=== PATIENT | female | born 1970 | race Caucasian/White ===

== ENCOUNTER 2018-12-04 12:45 | Day surgery (SDC) | payer OTHER ==
[2018-11-28 12:10] VITALS: BMI 35.8
--- NOTE | 2018-12-04 07:18 | HP ---
History & Physical Update - History History: No Change - Physical Physical: No Change - Assessment Assessment: No Change - Plan Plan: No Change (Initial H&P completed on 11/12/[address] Meg Paul. No new complaints or medications. Here today for elective ACDF C5-C7.)
[2018-12-04] MEDS: oxyCODONE HCL 10 MG SUSTAINED ACTING TABLET PO STA ×2 (09:15→15:44)
[~2018-12-04 12:45] MED LIST: BUPRENORPHINE TD SCH; CEFAZOLIN 2 GM in DEXTROSE 5%-WATER - 100 ML IVPB ONE; DEXAMETHASONE SOD PHOSPHATE 4 MG/1 ML VIAL ONE; GELATIN, ABSORBABLE 100 EACH SPONGE TP ONE; GUM MASTIC/STORAX/MSAL/ALCOHOL 1 DRP DROPSBTL MC ONE; LACTATED RINGERS SOLUTION 1,000 ML IV SCH; LIDOCAINE 1%/EPI 1:100000 (20 ML MULTI DOSE VIAL) ONE; LIDOCAINE HCL/PF 2% SDV 5ML VIAL ONE; MIDAZOLAM HCL 2 MG/2 ML SINGLE DOSE VIAL ONE; ONDANSETRON 4 MG/2 ML VIAL IVPUSH PRN; ONDANSETRON 4 MG/2 ML VIAL ONE; PROPOFOL 20 ML ONE; ROCURONIUM BROMIDE 50 MG/5 ML VIAL ONE; ROPIVACAINE HCL 0.5% 30ML VIAL ONE; SUCCINYLCHOLINE CHLORIDE 200 MG/10 ML VIAL ONE; THROMBIN (RECOMBINANT) 5,000 UNIT VIAL TP ONE; ceFAZolin SODIUM 1 GM VIAL ONE; fentaNYL CITRATE 250 MCG/5 ML VIAL ONE; oxyCODONE HCL 10 MG SUSTAINED ACTING TABLET ONE; oxyCODONE HCL 10 MG SUSTAINED ACTING TABLET PO STA; oxyCODONE HCL 5 MG TABLET PO PRN
[2018-12-04] MEDS ORDERED: ONDANSETRON 4 MG/2 ML VIAL IVPUSH ONE ×2 (12:52→12:55)
--- NOTE | 2018-12-04 12:55 | OP ---
DATE OF OPERATION: 12/03/2018 PREOPERATIVE DIAGNOSIS: Cervical stenosis, C5-6, C6-7. POSTOPERATIVE DIAGNOSIS: Cervical stenosis, C5-6, C6-7. PROCEDURE PERFORMED: 1. Anterior cervical diskectomy and fusion, C5-6. 2. Anterior cervical diskectomy and fusion, C6-7. 3. Placement of instrumentation, C5-C7. SURGEON: Michael Plata MD ECHOCARDIOGRAPHY TECHNOLOGIST: GOLDEN Sheppard ESTIMATED BLOOD LOSS: 50 mL. INTRAVENOUS FLUIDS: By Anesthesia. ANESTHESIA: General and ADRIEN block. COMPLICATIONS: There were none. DISPOSITION: Patient brought to the PACU in stable condition. CLINICAL INDICATION: The patient is a 48-year-old female who has been suffering from pain from her neck down her arm. X-rays and MRI were completed which noted that she had herniated disk at C5-6 and C6-7. She had gone through an exhaustive course of treatment for this which included medications, physical therapy, as well as injections. Unfortunately, her pain continued to persist despite all of this. At this point, risks, benefits, and alternatives were discussed, and the patient consented to surgery. OPERATIVE NOTE: Patient was brought to the operating room by Anesthesia. After appropriate patient identification was performed, general anesthesia and ADRIEN block was also given. Her arms were tucked in at the side. A shoulder roll was placed underneath her shoulder to extend her neck to the point that she could tolerate in the preoperative holding area. Neuromonitoring leads were attached. Needle was taped onto her neck to manpreet off the C5-6 level. X-rays taken to confirm this was correct. Needle was removed, and 10 mL of lidocaine with epinephrine was injected into her back at this time. Her back was prepped and draped in a sterile manner. At this point, timeout was completed. A 2-inch incision was made on the left side of her neck. Dissection was carried down to the platysma. Deep platysma was cut in line with the skin incision. Next, an interval between the sternocleidomastoid and strap muscles was developed. Next, interval between the carotid sheath and trachea and esophagus was developed. A needle was placed into the C5-6 disk. X-ray was taken to confirm this was correct. The needle was removed. The longus coli muscles were elevated off. [place] pins were placed into the body of C5 and C7. Disk was incised. Distraction was applied. At this point, the microscope was brought in. Using a series of pituitaries, Kerrisons, and curettes, diskectomy were completed at C5-6 and C6-7. Cages were trialed and placed in. The endplates were decorticated. Cages filled with bone graft were placed in. Distraction as then let go. A screw was placed in the body of C5. A screw was placed in the body of C6. A screw was placed in the body of C7. AP and lateral x-rays confirm the instrumentation to be in good position. Final tightening was performed. Deep platysma was closed with 2-0 Vicryl. The skin was closed with 3-0 Monocryl suture. Dermabond was applied. Steri-Strips were applied. Sterile dressing was applied. Patient was placed supine on the OR bed, extubated in the OR, and brought to the PACU in stable condition. Bruna [id number]
[2018-12-04] MEDS ORDERED: oxyCODONE HCL 10 MG SUSTAINED ACTING TABLET ONE (14:02)
[2018-12-04] MEDS ORDERED: oxyCODONE HCL 10 MG SUSTAINED ACTING TABLET PO ONE (14:10)
[2018-12-04] MEDS: CEFAZOLIN 1 GM/D5W 1 GRAM/50 ML BAG IVPB SCH (17:05)
[2018-12-04] MEDS: oxyCODONE HCL 5 MG TABLET PO PRN ×2 (17:05→20:56)
[2018-12-05] MEDS: CEFAZOLIN 1 GM/D5W 1 GRAM/50 ML BAG IVPB SCH (01:18)
[2018-12-05] MEDS: oxyCODONE HCL 5 MG TABLET PO PRN ×2 (01:22→05:58)
[2018-12-05 06:09] VITALS: BP 106/57; PULSE 89; TEMP 98.2
--- NOTE | 2018-12-05 08:27 | PN ---
Progress Note, Physician Chief Complaint: s/p ACDF post op day one History of Present Illness: under general anesthesia, superficial cervical plexus block for post op pain control - Current Medication List Current Medications: Active Medications Lactated Ringer's (Lactated Ringers Solution) 1,000 mls @ 125 mls/hr IV ASDIR CASSIE Last Admin: 12/04/18 15:45 Dose: Not Given Non-Formulary Medication (Buprenorphine [Butrans 15 Mcg/Hr]) 1 each TD WEEKLY [facility] Ondansetron HCl (Zofran Injection) 4 mg IVPUSH Q6H PRN PRN Reason: NAUSEA AND/OR VOMITING Oxycodone HCl (Roxicodone -) 5 mg PO Q4H PRN PRN Reason: PAIN LEVEL 1-5 Oxycodone HCl (Roxicodone -) 10 mg PO Q4H PRN PRN Reason: PAIN LEVEL 6-10 Last Admin: 12/05/18 05:58 Dose: 10 mg - Objective Vital Signs: Vital Signs Temperature 98.2 F 12/05/18 06:00 Pulse Rate 89 12/05/18 06:00 Respiratory Rate 18 12/05/18 06:00 Blood Pressure 106/57 L 12/05/18 06:00 O2 Sat by Pulse Oximetry (%) 94 L 12/05/18 06:00 Constitutional: Yes: Well Nourished Cardiovascular: Yes: WNL Respiratory: Yes: WNL Gastrointestinal: Yes: WNL Assessment/Plan patient complaining of pain when swallowing and difficutly breathing when walking. No acute distress, Tolerating PO as she was eating breakfast when interviewed this AM. Advised patient to inform medical team about chest pain and difficulty breathing when walking. She said they are aware. No adverse effect of anesthetic. Possible difficulty breathing as a result of unilateral phrenic nerve block which should resolve within 24 hours of the block. No other intervention at this time.
--- NOTE | 2018-12-05 10:40 | DS ---
Physical Exam: SUBJECTIVE: Patient seen and examined this am. She has complaints of left shoulder/arm pain. No difficulty swallowing does have pain in her throat/neck. OBJECTIVE: Vital Signs Temperature 98.2 F 12/05/18 06:00 Pulse Rate 89 12/05/18 06:00 Respiratory Rate 18 12/05/18 08:56 Blood Pressure 106/57 L 12/05/18 06:00 O2 Sat by Pulse Oximetry (%) 94 L 12/05/18 08:56 PHYSICAL EXAM GENERAL: The patient is awake, alert, and fully oriented, in no acute distress. NECK: Trachea midline, supple in c/d/i no masses. Mild swelling medially. No stridor. Soft cervical collar in place. LUNGS: Breath sounds equal, clear to auscultation bilaterally, no wheezes, no crackles, no accessory muscle use. HEART: Regular rate and rhythm. ABDOMEN: Soft, nontender, nondistended. EXTREMITIES: 2+ pulses, warm, well-perfused, no edema or calf tenderness. 5/5 dorsi/plantar flexion b/l. Slight decreased electric blanket packer strength and 4/5 with flexion/ extension to the left arm. NEUROLOGICAL: Normal speech, gait steady. PSYCH: Normal mood, normal affect. HOSPITAL COURSE: The patient was admitted to the Med-Surg Unit after an elective repair of their cervical stenosis. Now, s/p C5-6 and C6-7 anterior cervical disectomy fusion.The day of surgery, the patient ambulated the hallways with assistance. Narcotic and non-narcotic pain management control was achieved with an oral and IV approach. An xray was obtained and confirmed hardware placement at C5-6 and C6-7, no fractures or dislocations. Gali-operative IV ABX were administered. DVT prophylaxis was achieved with SCDs and early ambulation. The patient ambulated with Physical Therapy and no services were recommended upon discharge. Narcotic scripts and or muscle relaxants were checked with [facility] [employer]OTOGRAPHER prior to escibe. The discharge instructions and an oral pain management plan were reviewed with the patient. All questions answered. Above plan discussed with Dr. Plata and agreed. Date of Admission:12/04/18 Date of Discharge: 12/05/18 Minutes to complete discharge: 20 <Delisa Garcia - Last Filed: 12/05/18 16:21> Physical Exam: SUBJECTIVE: Patient seen and examined OBJECTIVE: Vital Signs Temperature 98.2 F 12/05/18 06:00 Pulse Rate 89 12/05/18 06:00 Respiratory Rate 18 12/05/18 08:56 Blood Pressure 106/57 L 12/05/18 06:00 O2 Sat by Pulse Oximetry (%) 94 L 12/05/18 08:56 PHYSICAL EXAM GENERAL: The patient is awake, alert, and fully oriented, in no acute distress. HEAD: Normal with no signs of trauma. EYES: PERRL, extraocular movements intact, sclera anicteric, conjunctiva clear. ENT: Ears normal, nares patent, oropharynx clear without exudates, moist mucous membranes. NECK: Trachea midline, full range of motion, supple. LUNGS: Breath sounds equal, clear to auscultation bilaterally, no wheezes, no crackles, no accessory muscle use. HEART: Regular rate and rhythm, S1, S2 without murmur, rub or gallop. ABDOMEN: Soft, nontender, nondistended, normoactive bowel sounds, no guarding, no rebound, no hepatosplenomegaly, no masses. EXTREMITIES: 2+ pulses, warm, well-perfused, no edema. NEUROLOGICAL: Cranial nerves II through XII grossly intact. Normal speech, gait not observed. PSYCH: Normal mood, normal affect. SKIN: Warm, dry, normal turgor, no rashes or lesions noted. LABS HOSPITAL COURSE: Date of Admission:12/04/18 Date of Discharge: 12/11/18 Patient seen and examined Agree with above D/C Planning <Michael Plata - Last Filed: 12/11/18 10:22> Visit type - Case Type Case Type: Scheduled - Emergency Emergency Visit: No - New patient This patient is new to me today: Yes Date on this admission: 12/05/18 <Delisa Garcia - Last Filed: 12/05/18 16:21>
[2018-12-05] MEDS ORDERED: diazePAM 2 MG TABLET PO PRN (11:00)
== END 2018-12-05 13:07 | disposition home or self-care (01) ==
LOC: FM/S 12:45 → FASUSAT 12:45 → FASU 12:45 → FM/S 15:05 → FASUSAT 12-05 13:07
PROVIDERS: ATTEND Orthopaedic Surgery Orthopaedic Surgery of the Spine
PROC: 0RG10A0 Fusion of Cervical Vertebral Joint with Interbody Fusion Device, Anterior Approach, Anterior Column, Open Approach (ICD-10-PCS; 2018-12-04)
PROC: 0RG10K0 Fusion of Cervical Vertebral Joint with Nonautologous Tissue Substitute, Anterior Approach, Anterior Column, Open Approach (ICD-10-PCS; 2018-12-04)
PROC: 0RB30ZZ Excision of Cervical Vertebral Disc, Open Approach (ICD-10-PCS; principal; 2018-12-04 11:11)
DX: M48.02 Spinal stenosis, cervical region (principal)
CPT/HCPCS: 22551; 22552; 22845; 22853; C1889; 72050-TC-FY; 76001-TC-FY; 84703; 94760; 97116-GP; 97161-GP